=== PATIENT | female | born 1985 | race African-American/Black ===

== ENCOUNTER 2020-10-26 00:47 | Emergency (ER) | payer OTHER ==
[~2020-10-26] VITALS: Ht 167.6 cm; Wt 61.4 kg
[2020-10-26] MEDS ORDERED: HYDROGEN PEROXIDE 118 ML SOLUTION TP ONE (04:00)
[2020-10-26] MEDS ORDERED: IBUPROFEN 600 MG TABLET PO ONE (04:30)
[2020-10-26 04:42] VITALS: BP 112/70
== END 2020-10-26 04:50 | disposition home or self-care (01) ==
LOC: EMS 00:50
DX: H61.21 Impacted cerumen, right ear (principal)
CPT/HCPCS: 69209; 99282; 99283